=== PATIENT | male | born 1970 | race African-American/Black ===

== ENCOUNTER 2019-01-02 08:43 | Day surgery (SDC) | payer OTHER ==
[2019-01-02] VITALS (9 sets, daily range): BP systolic 110–144; BP diastolic 67–93
[~2019-01-02] VITALS: Ht 175.3 cm; Wt 99.3 kg
--- NOTE | 2019-01-02 07:08 | Pre-Procedure Note/Attestation ---
Pre-Procedure Note/Attestation Complete Prior to Procedure Planned Procedure: right Procedure Narrative: rt shoulder scope, sad, mini payam, bankart repair Indications for Procedure Pre-Operative Diagnosis: rt shoulder instability Attestation I attest that I discussed the nature of the procedure; its benefits; risks and complications; and alternatives (and the risks and benefits of such alternatives ), prior to the procedure, with the patient (or the patient's legal employee representative). I attest that, if there was a reasonable possibility of needing a blood transfusion, the patient (or the patient's legal employee representative) was given the [facility] standardized written summary, pursuant to the [place] Sergio Blood Safety Act ([place] Health and Safety Code # 1645, as amended). I attest that I re-evaluated the patient just prior to the surgery and that there has been no change in the patient's H&P, except as documented below: none Christiano Murguia MD Jan 02, 2019 07:08
[~2019-01-02 08:43] MED LIST: NKM; ceFAZolin 1gm IVPB IVPB ONE; celeBREX 200mg Cap **SURGERY PATIENTS ONLY ORAL ONE; oxyCONTIN 20mg tab ORAL ONE
[2019-01-02] MEDS ORDERED: LR 1000ml 1,000 ML IVLG SCH (08:51)
--- NOTE | 2019-01-02 08:51 | Immediate Post-Op Evaluation ---
Immediate Post-Op Evalulation Immediate Post-Op Evalulation Procedure: R Shoulder Arthroscopy, Bankart Repair Date of Evaluation: Jan 02, 2019 Time of Evaluation: 13:07 IV Fluids: 800 LR Blood Products: 0 Estimated Blood Loss: 20 Urinary Output: 0 Blood Pressure Systolic: 125 Blood Pressure Diastolic: 82 Pulse Rate: 63 Respiratory Rate: 16 O2 Sat by Pulse Oximetry: 100 Temperature (Fahrenheit): 97.6 Pain Score (1-10): 2 Nausea: No Vomiting: No Complications 0 Patient Status: awake, reacts, patent, extubated, none Hydration Status: adequate Dru Gram Ancef IV Given Within 1 Hr of Incision: Yes Time Given: 10:43 Alvaro Edward MD Jan 02, 2019 08:51
[2019-01-02] MEDS ORDERED: Ropivacaine 5mg/ml Vial 30ml INJ ONE (08:58)
[2019-01-02] MEDS ORDERED: Propofol 200mg/20ml IV ONE (08:59)
[2019-01-02] MEDS ORDERED: Dexamethasone 4mg/ml vial ONE (08:59)
[2019-01-02] MEDS ORDERED: Lidocaine 1% MPF 10mg/ml 5ml ONE (08:59)
[2019-01-02] MEDS ORDERED: Midazolam 2mg/2ml Inj IVP PRN (09:00)
[2019-01-02] MEDS ORDERED: Hydromorphone 0.5mg/0.5ml inj IVP PRN (09:00)
[2019-01-02] MEDS ORDERED: Ketorolac 30mg Inj IV PRN ×2 (09:00)
[2019-01-02] MEDS ORDERED: HYDROcodone/Acetamin 7.5/325 tab ORAL PRN (09:00)
[2019-01-02] MEDS ORDERED: LORazepam Inj 2mg/ml 1ml IV PRN (09:00)
[2019-01-02] MEDS ORDERED: Meperidine 50mg/ml Inj(FOR RIGORS ONLY) IVP PRN (09:00)
[2019-01-02] MEDS ORDERED: oxyCODONE HCL/Acetaminophen 5/325mg ORAL PRN (09:00)
[2019-01-02] MEDS ORDERED: fentaNYL 100 mcg/2 mL IV PRN (09:00)
[2019-01-02] MEDS ORDERED: Metoclopramide 10mg/2ml Inj IVP PRN (09:00)
[2019-01-02] MEDS ORDERED: HYDROcodone/Acetamin 5/325 tab ORAL PRN ×2 (09:00→09:15)
[2019-01-02] MEDS ORDERED: Labetalol 5mg/ml 20ml vial IV PRN (09:00)
[2019-01-02] MEDS ORDERED: Atropine Sulfate 0.4mg/ml inj IVP PRN (09:00)
[2019-01-02] MEDS ORDERED: DiphenhydrAMINE 50mg/ml Inj IVP PRN (09:00)
[2019-01-02] MEDS ORDERED: Tylenol #3 tab (300mg/30mg) ORAL PRN (09:15)
[2019-01-02] MEDS ORDERED: HYDROmorphone 1mg/ml Carpuject SUBQ PRN (09:15)
[2019-01-02] MEDS ORDERED: D5 1/2NS 1,000 ML IV SCH (09:15)
[2019-01-02] MEDS ORDERED: Phenylephrine 10mg/ml Vial ONE (09:28)
[2019-01-02] MEDS ORDERED: celeBREX 200mg Cap **SURGERY PATIENTS ONLY ORAL ONE (09:49)
[2019-01-02] MEDS ORDERED: oxyCONTIN 20mg tab ORAL ONE (09:49)
[2019-01-02] MEDS ORDERED: Sterile Water Irrig 1000ml IRRIG ONE (10:00)
[2019-01-02] MEDS ORDERED: LR 1000ml ONE (10:00)
--- NOTE | 2019-01-02 10:00 | Anethesia Preoperative Eval ---
Anesthesia Pre-op PMH/ROS General Date of Evaluation: Jan 02, 2019 Time of Evaluation: 10:06 Anesthesiologist: Wagner ASA Score: ASA 2 Mallampati Score Class I : Soft palate, uvula, fauces, pillars visible Class II: Soft palate, uvula, fauces visible Class III: Soft palate, base of uvula visible Class IV: Only hard plate visible Mallampati Classification: Class II Surgeon: Blade Diagnosis: R Sholuder Pain Surgical Procedure: R Shoulder Arthroscopy, Bankart Procedure Anesthesia History: none Family History: no anesthesia problems Allergies: Coded Allergies: No Known Allergies (Unverified , 01/01/19) Medications: see eMAR Patient NPO?: Yes Past Medical History Cardiovascular: Reports: HTN Other: obesity - BMI 35 PSxH Narrative: R 4th To Amputation Anesthesia Pre-op Phys. Exam Physician Exam Last Vital Signs Date Time Temp Pulse Resp B/P (MAP) Pulse Ox O2 Delivery O2 Flow Rate FiO2 01/02/19 09:39 Room Air 01/02/19 09:17 98.6 63 18 139/88 99 Constitutional: NAD Neurologic: CN 2-12 intact Cardiovascular: RRR Respiratory: CTA Gastrointestinal: S/NT/ND Airway Exam Mallampati Score: Class II MO: full ROM: limited Teeth: missing, intact Anesthesia Pre-op A/P Risk Assessment & Plan Assessment: ASA 2 Plan: GA, SED, R Supraclavicular Block Status Change Before Surgery: No Pre-Antibiotics Dru Gram Ancef IV Given Within 1 Hr of Incision: Yes Time Given: 10:43 Alvaro Edward MD Jan 02, 2019 10:00
--- NOTE | 2019-01-02 10:01 | 48 Hour Post Anesthesia Eval ---
Post Anesthesia Evaluation Procedure: R Shoulder Arthroscopy, Bankart Repair Date of Evaluation: Jan 02, 2019 Time of Evaluation: 15:12 Blood Pressure Systolic: 134 0: 76 Pulse Rate: 63 Respiratory Rate: 18 Temperature (Fahrenheit): 98.2 O2 Sat by Pulse Oximetry: 100 Airway: patent Nausea: No Vomiting: No Pain Intensity: 2 Hydration Status: adequate Cardiopulmonary Status: Stable Mental Status/LOC: patient returned to baseline Follow-up Care/Observations: 0 Post-Anesthesia Complications: 0 Follow-up care needed: ready to discharge Alvaro Edward MD Jan 02, 2019 10:01
[2019-01-02] MEDS ORDERED: Bupivacaine w/Epi 0.5% 30ml Vial INJ ONE (10:05)
[2019-01-02] MEDS ORDERED: NS Irrig 4000ml IRRIG ONE ×7 (11:04→12:30)
--- NOTE | 2019-01-02 12:40 | Brief Operative Note ---
Immediate Post Operative Note Operative Note Chief Complaint: rt shoulder pain Pre-op Diagnosis: rt shoulder instability Procedure: rt shoulder scope, bankart repair Post-op Diagnosis: same as pre-op Findings: consistent w/pre-op dx studies Surgeon: md rey Capacity Planner: tony gr Anesthesiologist: md gustavo Anesthesia: general Specimen: none Complications: none Condition: stable Fluids: ns Estimated Blood Loss: minimal Drains: none Implant(s) used?: Yes - biomet Christiano Murguia MD Jan 02, 2019 12:40
--- NOTE | 2019-01-02 17:15 | Operative Note - Dictated ---
DATE OF OPERATION: 01/02/2019 PREOPERATIVE DIAGNOSIS: Right shoulder anterior labral tearing with instability. POSTOPERATIVE DIAGNOSES: 1. Right shoulder anterior capsular avulsion from the labrum with a labral tear over the anterior glenohumeral ligament. 2. Right shoulder type 3 SLAP tear with a bucket-handle tear of the superior labrum. 3. Adhesions over the anterior biceps consistent with traumatic scar tissue formation. PROCEDURE: 1. Right shoulder arthroscopy and extensive intra-articular shaving. 2. Right shoulder debridement/repair of the type 3 SLAP tear. 3. Right shoulder Bankart repair using 3 Biomet 1.6 mm JuggerKnot anchors combined with a posterior plication suture. 4. Resection of the scar tissue around the biceps tendon and freeing the biceps tendon without a tenotomy. SURGEON: Christiano Murguia M.D. LABELER: Angeles Gregg PA-C. Area Field Person was present during the actual operative portion of the case and was important and essential part of the operation. During the operation, the minister assistant held and operated the arthroscopic camera for visualization, assisted by manipulating the arm to help with visualization, and helped with essential parts of the repair process as necessary such as operating surgical instruments under surgeon supervision, suture management, and wound closures. ANESTHESIOLOGIST: Alvaro Edward M.D. ANESTHESIA: General anesthesia combined with interscalene block. EBL: Minimal. COMPLICATIONS: None. SURGICAL INDICATION: Patient is a 48-year-old male who sustained the above injury to his shoulder. The patient was treated non-operative initially, but this did not alleviate the patients symptoms. Therefore, after discussing all non-surgical and surgical options, and discussing all foreseeable risk and benefits of surgery, the patient opted for surgical treatment as described above. PATIENT POSITIONING: Patient was brought to the operating room table and was placed on the operating room table. All pressure points were well padded. General anesthesia was induced and patient was then placed in the lateral decubitus position. All pressure points were well padded again and an axillary roll was placed. Patient shoulder was then prepped and draped in the usual sterile fashion. Time out was performed and the appropriate preoperative antibiotic was given by the anesthesiologist. EXAMINATION OF SHOULDER UNDER ANESTHESIA: The shoulder was examined under anesthesia with all muscles well relaxed. The shoulder was forward flexed, abducted and was placed through full range of external and internal rotation. The anterior, posterior, and inferior stability of the shoulder was checked. The exam revealed no evidence of adhesive capsulitis and no evidence of instability. PORTAL PLACEMENT: The posterior portal was established 2cm inferior and 1cm medial to the edge of the posterior acromion. 1 cm skin incision was made using an eleven blade and using the blunt obturator, the cannula was gently placed through the capsule. The midglenoid portal was established just lateral to the coracoid process under direct visualization. Direction of the cannula was first established using a spinal needle, and subsequently, the cannula was placed through the capsule with a blunt obturator. The anterior superior cannula was established under direct visualization off the anterior lateral edge of the acromion and just anterior to the biceps tendon through the rotator interval. The directional of cannula was first established using a spinal needle, and subsequently, the cannula was placed through the capsule with a blunt obturator. DIAGNOSTIC ARTHROSCOPY: The biceps tendon was probed and pulled through the joint for visualization. It appeared normal. The biceps anchor was palpated with a probe and was visualized. There was a type 3 SLAP tear with a bucket-handle tear of the labrum. There was a scar tissue that went from the anterior-inferior biceps all the way up to superior posterior biceps. This was engulfing the biceps tendon. The posterior labrum and axillary recess was visualized. This was normal and there was no evidence of loose cartilage or fragments in this area. The glenoid articular surface was visualized and it appeared normal. The articular surface of the rotator cuff was visualized and probed next. There was no evidence of articular sided rotator cuff tear extending from the supraspinatus back to the posterior cuff. The Humeral head articular surface was then visualized. There was no evidence of articular cartilage damage. Next the anterior labrum, middle glenohumeral ligament, subscapularis tendon, and the anterior inferior glenohumeral ligament were evaluated. There was a tear of the anterior inferior glenohumeral ligament with part of the labrum torn off with it. However, prior labrum was intact. However, the anterior inferior glenohumeral ligament was torn and reattached it itself more inferiorly on the glenoid neck. The subscapularis was intact. At this point, the scope was moved to the midglenoid portal and the posterior structures including the posterior labrum, posterior capsule and posterior cuff were visualized. These structures were completely normal. The subscapularis recess was devoid of any loose bodies and the anterior capsule was well attached to the humeral neck. The middle and anterior inferior glenohumeral ligament was visualized. The anterior inferior glenohumeral ligament had a tear with instability. OPERATIVE DEBRIDEMENTS AND REPAIR: Care was given to all partial thickness tears and frayed structures in the shoulder joint. The frayed rotator cuff and labrum was debrided using a shaver initially through the anterior portal and subsequently through the posterior portal to complete the debridement. This allowed for smooth debridement of all affected structures and all loose fragments were removed. At this point, care was given to the type 3 SLAP tear. There was a large type 3 SLAP tear, which was removed and resected using a combination of baskets and damien. The attachment of the biceps tendon was visualized and the biceps tendon was not detached. The scar tissue over the biceps was visualized in getting off the biceps tendon and was impinging on it. This was debrided initially using arthroscopic scissors and subsequently using damien, this was resected. For Bankart Repair: The scope was placed in the anterior-superior cannula for visualization. Through the posterior cannula, initially, care was given to the posterior capsule. The posterior capsule was first prepared using a rasp to create microbleeding. Using standard suture passing instruments, a posterior pinch tuck plicating balancing suture was placed in the posterior inferior glenohumeral ligament through the labrum in a horizontal mattress fashion. The Suture was then placed outside the posterior cannula and was tied after completion of the anterior repair using Revo non-sliding knot with alternating-post half hitches. Then, through the midglenoid cannula, care was given to the torn anterior labrum. The scar portion of the anterior labrum was first mobilized with a liberator elevator off the glenoid neck. Once this was accomplished, the mobilization was taken more inferiorly all the way down to the 6 oclock position of the glenoid to allow transport of the labrum with the attached anterior inferior gleno-humeral ligament superiorly. The glenoid rim was then prepared by debriding it using a shaver and a charles to provide bleeding bone for accepting the labrum and the ligament. Using the guide, drill holes were made at the 5, 4, and 2:30 oclock positions of the glenoid 1-2 mm medial to the margin of the articular cartilage on the glenoid surface. A all suture anchor loaded with a non-absorbable #2 strong suture was then placed and tapped through this drill hole. The security of the anchor inside the bone was checked and it was assured that the anchor is well seated and not proud. Using standard suture passing instruments and using pinch-tuck technique, the anterior inferior gleno-humeral ligament was shifted from inferiorly to anterior-superior direction and was incorporated with the labral bite. The suture was then passed through the capsulolabral complex, and it was then secured using a SMC sliding knot followed by 3 alternating-post half hitches. This process was performed for all anchors. The security of the repair was assured with a probe. The position of the humeral head was checked and it appeared that the head was sitting centrally within the glenoid as judged by the central bare area. CONDITION AT DISCHARGE FROM OPERATING ROOM: The skin was re-approximated and sterile dressing and sling were applied. All lap counts and instrument counts were correct. Patient tolerated the procedure well without complications and was taken to the recovery room in stable conditions. Christiano Murguia M.D. DR: ARELI JOB#: [id number] CC:
== END 2019-01-02 15:30 | disposition home or self-care (01) ==
LOC: SUR 08:43
DX: S43.401A Unspecified sprain of right shoulder joint, initial encounter (principal); M62.89 Other specified disorders of muscle; X58.XXXA Exposure to other specified factors, initial encounter; Y92.9 Unspecified place or not applicable; I10 Essential (primary) hypertension; E66.9 Obesity, unspecified; Z89.421 Acquired absence of other right toe(s)
CPT/HCPCS: 29806; 29807; 29823; J0690; J1100; J2250; J2405; J2704; J2795; 94003; 94150; C1713; J2370